=== PATIENT | male | born 1995 | race Caucasian/White ===

== ENCOUNTER 2024-03-15 17:08 | Emergency (ER) | payer OTHER, SELFPAY ==
[2024-03-15 17:14] VITALS: BP 137/88; PULSE 74; RESP 16; TEMP 36.6; O2SAT 98; BMI 23.7
--- NOTE | 2024-03-15 17:42 | ED_ITS ---
HPI - General Adult General Chief complaint: Unspecified Complaint, Adult Stated complaint: severe dehydration; hands clenching up Time Seen by Provider: 03/15/24 17:09 History of Present Illness HPI narrative: This 28-year-old male reports an episode where he felt lightheaded and felt like he might pass out. He was sitting at the time and also noted that his hand seemed to be come more rigid. His significant other noted that he looked pale. He states that he was outside these past few days in the heat and was taking excessive amounts of alcohol. He does not report any symptoms of withdrawal. He states that he feels back to normal at this time. He arrives here with normal vital signs. Related Data Home Medications ?Medication ?Instructions ?Recorded ?Confirmed No Known Home Medications 03/15/24 03/15/24 Allergies Allergy/AdvReac Type Severity Reaction Status Date / Time No Known Drug Allergies Allergy Verified 03/15/24 17:18 Review of Systems Status of ROS: Reports: 10 or more systems reviewed and unremarkable except as noted in History and below Narrative: Constitutional: No fevers, no weight gain or loss. Eyes: No discharge. No vision changes. HENT: No congestion, no sore throat, no ear pain. Cardiovascular: No chest pain, no palpitations. Respiratory: No shortness of breath, no wheezes, no cough. Gastrointestinal: No abdominal pain, no vomiting, no diarrhea. Genitourinary: No dysuria, no hematuria. Musculoskeletal: Normal range of motion. Skin: No rashes, no pruritis. Neurological: No weakness, sensory change, speech change. Endo/Heme/Allergies: No bruising or bleeding. No polydipsia. Pysch: no suicidality, no anxiety, no insomnia. All other systems reviewed and are negative. Exam Narrative: Exam Narrative: Constitutional: Well-developed, well-nourished, no acute distress. HEENT: Normocephalic, atraumatic. Neck: Normal range of motion. Nontender. Supple. Heart: Regular. No murmurs. Normal rate. Intact distal pulses. Lungs: Clear to auscultation. No chest discomfort. No wheezes, rhonchi, or rales. Abdomen: Normal bowel sounds. Nontender. No rebound tenderness. Genitalia: Deferred. Back: No midline tenderness. Normal range of motion. Extremities: Normal range of motion. No injury. Skin: Intact. No rash. Warm. No erythema or pallor. Neurologic: No altered sensation. No weakness. Alert and oriented. No facial asymmetry. Tongue is midline. [id number] is normal. No pronator drift. [employer] strength is equal bilaterally. Able to raise each leg from the bed. Psychiatric: No suicidality. No anxiety or depression. No insomnia. Nursing notes and vitals signs are reviewed. Const: Vital Signs, click to edit/add: Vital Signs - 24 hr 03/15/24 17:14 Temperature 97.8 F Pulse Rate [Pulse Oximeter] 74 Respiratory Rate 16 [facility] 137/88 Pulse Oximetry 98 Oxygen Delivery Me thod Room Air Course Vital Signs Vital signs: Initial Vital Signs Temperature 97.8 F 03/15/24 17:14 Temperature Source Temporal Artery Scan 03/15/24 17:14 Pulse Rate 74 03/15/24 17:14 Respiratory Rate 16 03/15/24 17:14 Blood Pressure 137/88 03/15/24 17:14 Blood Pressure Mean 104 03/15/24 17:14 Blood Pressure Position Supine 03/15/24 17:14 Pulse Oximetry 98 03/15/24 17:14 Oxygen Delivery Method Room Air 03/15/24 17:14 Vital Signs Temperature 97.8 F 03/15/24 17:14 Pulse Rate 74 03/15/24 17:14 Respiratory Rate 16 03/15/24 17:14 Blood Pressure 137/88 03/15/24 17:14 Pulse Oximetry 98 03/15/24 17:14 Oxygen Delivery Method Room Air 03/15/24 17:14 Temperature 97.8 F 03/15/24 17:14 Pulse Rate 74 03/15/24 17:14 Respiratory Rate 16 03/15/24 17:14 Blood Pressure 137/88 03/15/24 17:14 Pulse Oximetry 98 03/15/24 17:14 Oxygen Delivery Method Room Air 03/15/24 17:14 Medical Decision Making MDM Narrative Medical decision making narrative: This patient comes in with report of what sounds like a near syncopal event. He states that he feels back to normal at this time. He has been in some circumstances in the past few days that can explain his symptoms today. Namely, he was out in the heat and was taking excessive amounts of alcohol. I did discuss lab and imaging options with the patient and in a process of shared decision-making he declined any these for now. He was satisfied here that is exam and vital signs are all in normal range. I advised him to take fluids and food. Discharge Plan Discharge Clinical Impression: Near syncope Patient Disposition: Home, Self-Care Condition: Improved Additional Instructions: Take fluids and foods and increase activity as tolerated. Follow up with MD return if symptoms are recurrent or worsening. Prescriptions: No Action No Known Home Medications Stand Alone Forms: [facility] Info Instructions
== END 2024-03-15 18:05 | disposition home or self-care (01) ==
LOC: ED 17:58
PROVIDERS: Emergency Provider Emergency Medicine Emergency Medical Services
DX: R55 Syncope and collapse (principal)
CPT/HCPCS: 99282; 99283; 99284

== ENCOUNTER 2024-04-13 08:18 | Outpatient (CLI) | payer OTHER, SELFPAY | END 2024-04-13 08:19 | disposition home or self-care (01) | LOC: NFLDREF 04-16 12:59 | PROVIDERS: PCP Internal Medicine; Referring Provider Internal Medicine; Visit Provider Internal Medicine | DX: E78.5 Hyperlipidemia, unspecified (principal); Z13.228 Encounter for screening for other metabolic disorders | CPT/HCPCS: 80053; 80061 ==